=== PATIENT | male | born 1955 | race Caucasian/White ===

== ENCOUNTER 2018-02-24 20:17 | Emergency (ER) | payer OTHER ==
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
[2018-02-24] MEDS ORDERED: Sodium Chloride 0.9% 10 ML Syringe FLUSH PRN (20:30)
[2018-02-24] MEDS ORDERED: Iopamidol 612 MG/ML 150 ML Bottle IVPUSH ONE (20:30)
[2018-02-24] MEDS ORDERED: Lidocaine 2% Jelly 10 ML Urojet ONE (20:43)
[2018-02-24] MEDS ORDERED: Midazolam 5 MG/ML 5 ML MDV ONE ×2 (21:17→21:19)
[2018-02-24] MEDS ORDERED: Sodium Chloride 0.9% 50 ML ONE (21:19)
[2018-02-24] MEDS ORDERED: Lidocaine 1% with EPINEPHrine 1:100,000 20 ML MDV ONE (21:25)
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
[2018-02-25] MEDS ORDERED: Midazolam 50 MG in Sodium Chloride 0.9% 40 ML IV STA (02:34)
[2018-02-25] MEDS ORDERED: Propofol 200 MG/20 ML SDV IVPUSH ONE (02:34)
[2018-02-25] MEDS ORDERED: Midazolam 1 MG/ML 5 ML SDV IVPUSH ONE (02:34)
[2018-02-25] MEDS ORDERED: Etomidate 2 MG/ML 20 ML SDV IVPUSH ONE (02:34)
[2018-02-25] MEDS ORDERED: Sodium Chloride 0.9% 1,000 ML IV SCH (02:45)
--- NOTE | 2018-02-25 07:42 | CR ---
Chest: Portable supine view of the chest was obtained. Comparison: No previous chest x-ray. Soft tissue air is noted within the left chest wall. Mild deformity to several left lower ribs are seen which is compatible with rib fractures. No pneumothorax is seen on this exam. Lungs show no acute parenchymal densities. Heart size is normal. Mediastinum is widened which is most likely due to supine technique. Impression: 1. Soft tissue air within left chest wall with left-sided rib fractures. Diagnostic code #3
--- NOTE | 2018-02-25 07:42 | CT ---
CT chest Technique: Multiple axial sections through the chest were obtained. Intravenous contrast was utilized. Findings: Slightly prominent mediastinal fat is seen. This is a normal variant. Mediastinum and hilar regions show no abnormality. Incidental atherosclerotic calcification noted within the thoracic aorta. No pericardial thickening is seen. Scattered degenerative spurring noted within the spine. Moderate size left-sided pneumothorax is seen. Minimal lucency is noted along the right chest possibly due to minimal right-sided pneumothorax or may also be due to the interface artifact caused by the interface of the parenchymal process and pleura. Patchy parenchymal densities are seen most prominent within the upper lungs compatible with pulmonary contusion. Fracture is noted within the left transverse process of T1. Fracture is seen within the posterior left second rib as well as within the anterior left third and fourth ribs. Left fifth rib shows a mildly displaced anterior fracture. Nondisplaced fracture is noted within the anterior left sixth rib. No additional rib fracture is appreciated. Mild compression fracture is seen within the vertebral body of T11. No extension into the posterior vertebral line is seen. No abnormal subluxation is seen. Degenerative change is noted within the thoracic spine. Significant subcutaneous air is noted within the left chest wall. Impression: 1. Multiple left-sided rib fractures with moderate left-sided pneumothorax. 2. Equivocal minimal right-sided pneumothorax versus artifact. 3. Considerable subcutaneous air within the left chest. 4. Fracture within the transverse process of T1. 5. Minimal compression fracture is noted within the vertebral body of T11. No extension into the posterior vertebral line is seen. 6. Patchy areas of parenchymal contusion within both lungs. Diagnostic code #5 Agree with preliminary report issued by [facility], additional finding of thoracic spine fracture of T11 as noted above ([facility] preliminary report dictated on 02/24/18, 10:44 PM Central Time) CT abdomen and pelvis Technique: Multiple axial sections were obtained from above the dome of the diaphragm inferiorly through the pubic symphysis. Intravenous contrast was utilized. No oral contrast has been given. Comparison: No prior abdominal x-ray. Findings: Liver shows fatty infiltration without focal abnormality. Spleen appears within normal limits. Adrenal glands show no nodule. Kidneys show no hydronephrosis or mass. Very small nonobstructing calculus is seen within left kidney. Pancreas is within normal limits. Gallbladder contains no calcified gallstones. Aorta shows atherosclerotic change without aneurysm. No retroperitoneal adenopathy or mesenteric abnormalities are seen. No pelvic mass or adenopathy is seen. Bone window settings shows subcutaneous air within the left back which is from air extending inferiorly from the chest. Degenerative spurring is noted within the spine. 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 No acute bony abnormality is seen. Impression: 1. Incidental findings. Other than posterior subcutaneous air, nothing acute is seen on CT study of the abdomen and pelvis. Diagnostic code #2 I agree with preliminary report issued by [facility] ([facility] preliminary report dictated on 02/24/18, 10:52 PM Central Time)
--- NOTE | 2018-02-25 07:42 | CT ---
CT cervical spine Technique: Multiple axial sections were obtained from above C1 inferiorly to the mid T1-T2 level. Reconstructed sagittal and coronal images were reviewed. Details diminished within the mid and lower cervical spine due to photon attenuation secondary to patient body habitus. Findings: Anterior osteophytes are seen at C3-C4 to the right side. Slight spurring noted at C6-C7. Calcification seen within the anterior annulus at C6-C7. This calcification is well corticated and rather dense and is felt to be degenerative rather than represent a fracture. Fracture is identified within the left second rib. Small pneumothorax seen on the left side. Subcutaneous air is seen within the upper left chest wall. Fracture identified within the left clavicle. Fracture identified within the transverse process of T1 on the left side. Fracture noted within the tip of the left transverse process of C7. No additional fracture seen within the cervical spine. Impression: 1. Fracture within the left second rib and left clavicle. 2. Mild degenerative change noted within the cervical spine. 3. Small left apical pneumothorax. Subcutaneous air noted within the left chest wall. 4. Fractures within the left transverse process of C7 and T1. Diagnostic code #5 Agree with preliminary report issued by [facility], other findings described on preliminary report are felt to be incidental and not relating to acute trauma ([facility] preliminary report dictated on 02/24/18, 11:24 PM Central Time)
--- NOTE | 2018-02-25 08:31 | CT ---
Head CT Technique: Multiple axial sections through the brain were obtained. Intravenous contrast was not utilized. Comparison: No prior intracranial imaging. Findings: Left-sided subcutaneous hematoma is seen within the scalp. Ventricles along with basal cisterns and sulci over the convexities are mildly prominent. Minimal area of increased density is seen overlying the convexity of the right frontal region possibly due to small cortical contusion measuring about 6 mm. No other findings of intracranial hemorrhage is seen. No midline shift or mass effect is seen. Mucosal thickening and fluid seen within the right sphenoid sinus. Fluid may relate to retained secretions. Other visualized sinuses are clear. No acute calvarial abnormality is appreciated. Impression: 1. Findings suspicious for small cortical contusion overlying the right frontal convexity measuring about 6 mm. 2. Scalp hematoma on the left side. 3. Other findings which are felt to be incidental as described above. Diagnostic code #3 Agree with preliminary report issued by [facility] ([facility] preliminary report dictated on 02/24/18, 10:49 PM Central Time)
--- NOTE | 2018-02-25 14:01 | CR ---
Chest: Frontal view of the chest was obtained. Comparison: Prior chest x-ray and chest CT performed earlier on the same day. Left-sided chest tube is noted. Subcutaneous air is noted within the lateral left chest. No pneumothorax is seen on current study. Left-sided rib fractures are partially seen. Widened mediastinum is seen which is due to fat as noted on previous CT. Nasogastric tube is seen with tip lying within the stomach fundus. Tip of endotracheal tube lies at the lower level of the clavicle in satisfactory position. Impression: 1. Satisfactory position of left-sided chest tube. No pneumothorax is seen. 2. Continuing subcutaneous air within the left chest wall. 3. Satisfactory position of nasogastric tube and endotracheal tube. 4. Stable rib fractures on the left side. Diagnostic code #3
== END 2018-02-24 22:30 ==
LOC: JD.ED 20:17
DX: S27.0XXA Traumatic pneumothorax, initial encounter (principal); S42.102A Fracture of unspecified part of scapula, left shoulder, initial encounter for closed fracture; S22.42XA Multiple fractures of ribs, left side, initial encounter for closed fracture; S06.5X0A Traumatic subdural hemorrhage without loss of consciousness, initial encounter; T79.7XXA Traumatic subcutaneous emphysema, initial encounter; S42.002A Fracture of unspecified part of left clavicle, initial encounter for closed fracture; S27.322A Contusion of lung, bilateral, initial encounter; S02.92XA Unspecified fracture of facial bones, initial encounter for closed fracture; E11.9 Type 2 diabetes mellitus without complications; Z88.7 Allergy status to serum and vaccine; V29.9XXA Motorcycle rider (driver) (passenger) injured in unspecified traffic accident, initial encounter
CPT/HCPCS: 31500; 32551; 36415; 51702; 70450; 71045; 71260; 72125; 74177; 80053; 81001; 85007; 85027; 85610; 85730; 96365; 96368; 96375; 96376; 99291; 99292; G0390; G0480; J2250; J7050; Q9967; J2704